=== PATIENT | male | born 1985 | race Two or more races ===

== ENCOUNTER 2023-11-09 22:25 | Emergency (ER) | payer BC, OTHER ==
[~2023-11-09] VITALS: Ht 170.2 cm; Wt 80.0 kg
[2023-11-09 23:23] VITALS: BP 116/76; PULSE 88; RESP 18; O2SAT 96
[2023-11-10] MEDS: HYDROcodone-ACET 10/325MG TAB PO ONE (00:15)
[2023-11-10] MEDS ORDERED: IBU600T PO (00:18)
== END 2023-11-10 03:33 | disposition home or self-care (01) ==
LOC: ER 22:25
DX: S42.031A Displaced fracture of lateral end of right clavicle, initial encounter for closed fracture (principal); V89.9XXA Person injured in unspecified vehicle accident, initial encounter; Y93.89 Activity, other specified; Y92.89 Other specified places as the place of occurrence of the external cause; Y99.8 Other external cause status
CPT/HCPCS: 73000; 73010; 73030

== ENCOUNTER 2023-11-21 08:49 | Day surgery (SDC) | payer BC ==
[2023-11-16 14:53] LABS: Urine Bacteria None Seen /hpf (None Seen)
[2023-11-16 15:28] LABS: Basophils # (auto) 0 10 ^3/uL (0-0.2); Basophils % (auto) 0.5 % (0.0-2.0); Eosinophils # (auto) 0.4 10 ^3/uL (0-0.8); Eosinophils % (auto) 5.2 % (0.0-7.0); Hemoglobin 16.5 g/dL (13.5-17.5); Lymphocytes # (auto) 2.3 10 ^3/uL (0.4-5.4); Lymphocytes % (auto) 33.7 % (10.0-50.0); Mean Corpuscular Hemoglobin 30.3 pg (28.0-32.0); Mean Corpuscular Hgb Conc. 33.7 g/dL (32.0-36.0); Mean Corpuscular Volume 89.9 fL (80.0-100.0); Monocytes # (auto) 0.5 10 ^3/uL (0-1.3); Monocytes % (auto) 7.2 % (0.0-12.0); Neutrophils # (auto) 3.6 10 ^3/uL (1.6-8.6); Neutrophils % (auto) 53.4 % (37.0-80.0); Nucleated Red Blood Cells % 0.1 %; Red Blood Cells 5.44 10^6/uL (4.5-5.90); Red Cell Distribution Width 13.2 % (11.8-14.3); White Blood Cell 6.8 10^3/uL (4.4-10.8)
[2023-11-16 15:46] LABS: INR 1.06 (0.9-1.15); Partial Thromboplastin Time 31.8 SEC (24.5-34.5); Prothrombin Time 11.2 sec (9.3-11.8)
[2023-11-16 15:50] LABS: Urine Blood Negative /uL (Negative); Urine Clarity Clear (Clear); Urine Color Yellow (Yellow); Urine Mucus FEW (None Seen); Urine Protein, UAD TRACE (Negative); Urine Specific Gravity 1.031 (1.001-1.035); Urine Urobilinogen Normal (Negative); Urine WBC <1 /hpf (0 - 3)
[2023-11-16 16:24] LABS: Alanine Aminotransferase 27 U/L (7-40); Albumin 4.4 g/dL (3.2-4.8); Alkaline Phosphatase 105 U/L (46-116); Anion Gap 5 (5-15); Aspartate Aminotransferase 24 U/L (13-40); BUN/Creatinine Ratio 15.9 (10.0-20.0); Blood Urea Nitrogen 14 mg/dL (9-23); Calcium 9.5 mg/dL (8.5-10.1); Carbon Dioxide 28 mmol/L (20-30); Chloride 105 mmol/L (98-107); Glucose 84 mg/dL (74-106); Sodium 138 mmol/L (136-145)
[2023-11-16 16:25] LABS: Bilirubin, Total 1.1 mg/dL (0.2-1.0); Total Protein 7.3 g/dL (5.7-8.2)
[~2023-11-21] VITALS: Ht 170.2 cm; Wt 78.5 kg
[2023-11-21] MEDS ORDERED: ceFAZolin 2 GM/D5W50ml 50 ML IV ONE (11:05)
[2023-11-21] MEDS ORDERED: SUCCINYLCHOLINE CHLORIDE 20 MG/ML 10ML VIAL IV ONE (13:14)
[2023-11-21] MEDS ORDERED: BUPIVACAINE HCL 50 ML ONE (13:16)
[2023-11-21] MEDS ORDERED: fentaNYL CITRATE 100 MCG/2 ML VL ONE (13:30)
[2023-11-21] MEDS ORDERED: PROPOFOL 10 MG/ML 20 ML IV ONE (13:42)
[2023-11-21] MEDS ORDERED: ONDANSETRON HCL 4 MG/2 ML VIAL ONE (14:13)
[2023-11-21] MEDS ORDERED: ROCURONIUM 10MG/ML 10ML VIAL IV ONE (14:13)
[2023-11-21] MEDS ORDERED: DexAMETHasone SOD PHOS 10MG/1ML VIAL INJ ONE (14:13)
[2023-11-21] MEDS ORDERED: MEPERIDINE HCL (25 MG/ML) 1ML VIAL ONE (14:22)
[2023-11-21] MEDS: BUPIVACAINE 0.5% INJ 50ML VIAL IJ ONE (15:07)
[2023-11-21 15:46] VITALS: PULSE 62; RESP 19; TEMP 97.8; O2SAT 99
[2023-11-21] MEDS ORDERED: ONDANSETRON HCL 4 MG/2 ML VIAL IV ONE (16:00)
[2023-11-21] MEDS ORDERED: MEPERIDINE HCL (25 MG/ML) 1ML VIAL IV PRN (16:00)
[2023-11-21] MEDS ORDERED: HYDROmorphone HCL 2 MG/ML VL/or syr ONE (16:02)
[2023-11-21] MEDS: HYDROmorphone HCL 2 MG/ML VL/or syr IV PRN (16:04)
[2023-11-21 17:16] VITALS: BP 123/75; PULSE 90; RESP 13; O2SAT 93
== END 2023-11-21 17:31 | disposition home or self-care (01) ==
LOC: SUR 08:49
PROVIDERS: ATTEND Orthopaedic Surgery Sports Medicine
DX: S42.031A Displaced fracture of lateral end of right clavicle, initial encounter for closed fracture (principal); L84 Corns and callosities; Z79.899 Other long term (current) drug therapy; Z98.890 Other specified postprocedural states; X58.XXXA Exposure to other specified factors, initial encounter; Y93.89 Activity, other specified; Y92.89 Other specified places as the place of occurrence of the external cause; Y99.8 Other external cause status
CPT/HCPCS: 20680; 23515; 36415; 73000; 80053; 81001; 85025; 85610; 85730; C1713; C1769; J0330; J0690; J1100; J1170; J2175; J2405; J2704; J3010; J3490